=== PATIENT | female | born 1985 | race Caucasian/White ===

== ENCOUNTER 2025-06-08 07:22 | Emergency (ER) | payer BC, OTHER ==
[~2025-06-08] VITALS: Ht 167.6 cm; Wt 73.0 kg
[2025-06-08 08:28] LABS: PREGNANCY TEST URINE QUAL NEGATIVE (NEGATIVE)
[2025-06-08 08:29] LABS: APPEARANCE,URINE CLEAR (CLEAR); BLOOD, URINE 2+ Ery/uL (NEGATIVE); LEUKOCYTE ESTERASE ,URINE 3+ (NEGATIVE); NITRITE, URINE POSITIVE (NEGATIVE); UGLUCOSE NEGATIVE (NEGATIVE)
[2025-06-08 08:30] LABS: ADD URINE CULTURE YES; SQUAMOUS EPITHELIAL CELL,UR Few /HPF (None Seen)
[2025-06-08] MEDS ORDERED: DOXYCYCLINE HYCLATE (100 MG) 100 MG TABLET ONE (08:30)
[2025-06-08] MEDS ORDERED: DOXY100C2 PO (08:34)
[2025-06-08] MEDS: DOXYCYCLINE HYCLATE (100 MG) 100 MG TABLET PO ONE (08:45)
[2025-06-08 09:10] VITALS: BP 119/72; TEMP 98.1; O2SAT 99
== END 2025-06-08 09:12 | disposition home or self-care (01) ==
LOC: ER 07:35
DX: N39.0 Urinary tract infection, site not specified (principal); J45.909 Unspecified asthma, uncomplicated; I51.9 Heart disease, unspecified; M79.7 Fibromyalgia; Z91.040 Latex allergy status; Z88.8 Allergy status to other drugs, medicaments and biological substances; Z88.6 Allergy status to analgesic agent; Z88.2 Allergy status to sulfonamides; Z88.1 Allergy status to other antibiotic agents; Z88.0 Allergy status to penicillin
CPT/HCPCS: 81001; 84703-TC; 87086-TC; 87186-TC